=== PATIENT | female | born 1990 | race Caucasian/White ===

== ENCOUNTER 2016-12-10 19:58 | Outpatient (CLI) | payer OTHER ==
[~2016-12-10] VITALS: Ht 165.1 cm; Wt 97.3 kg
[2016-12-10 20:25] VITALS: BP 114/74; PULSE 98; TEMP 98
[2016-12-10 20:35] VITALS: BP 119/70; PULSE 71
[2016-12-10] MEDS ORDERED: PRENATAL1 TA7 PO (20:37)
[2016-12-10 21:05] VITALS: BP 112/72; PULSE 71
== END 2016-12-10 21:37 | disposition home or self-care (01) ==
LOC: LDRO 19:58
DX: Z03.71 Encounter for suspected problem with amniotic cavity and membrane ruled out (principal)

== ENCOUNTER 2016-12-11 02:41 | Inpatient (IN) | payer OTHER ==
[~2016-12-11] VITALS: Ht 165.1 cm; Wt 99.1 kg
[2016-12-11] VITALS (9 sets, daily range): BP systolic 106–132; BP diastolic 67–84; PULSE 73–100; TEMP 97.4–98.8
[~2016-12-11 02:41] MED LIST: PRENATAL1 TA7 PO
[2016-12-11 03:58] LABS: BASO % 0.2 % (0.0-2.0); EOS % 0.1 % (0-4.0); GRAN # 14.7 (1.4-6.5); HEMATOCRIT 38.3 % (37.0-47.0); HEMOGLOBIN 13.2 g/dl (12.5-16.0); LYMPH % 6.3 % (20.0-51.0); MEAN CELL VOLUME 93 fl (80.0-100.0); MEAN CORPUSCULAR HEMOGLOBIN 32 pg (27.0-31.0); MEAN CORPUSCULAR HGB CONC 35 g/dl (33.0-37.0); MEAN PLATELET VOLUME 10.7 fl (7.4-10.4); MONO # 0.6 (0.1-0.6); MONO % 3.7 % (1.7-9.3); PLATELET COUNT 148 K/mm3 (130-400); RED BLOOD COUNT 4.12 M/mm3 (4.10-5.30); WHITE BLOOD COUNT 16.5 K/mm3 (4.8-10.8)
[2016-12-12 08:00] VITALS: BP 111/79; PULSE 82; TEMP 97.2
[2016-12-12] MEDS ORDERED: MOTRIN 800800 MG/TAB PO (08:30)
[2016-12-12] MEDS ORDERED: PERCOCET 325 MG1 TA2 PO (08:31)
== END 2016-12-12 12:00 | disposition home or self-care (01) | DRG 775 ==
LOC: LDR 02:41 → OB 05:05
PROVIDERS: Obstetrics & Gynecology
PROC: 10E0XZZ Delivery of Products of Conception, External Approach (ICD-10-PCS; principal; 2016-12-11)
PROC: 0HQ9XZZ Repair Perineum Skin, External Approach (ICD-10-PCS; 2016-12-11)
DX: O62.3 Precipitate labor (principal); O70.0 First degree perineal laceration during delivery; Z37.0 Single live birth; Z3A.39 39 weeks gestation of pregnancy
CPT/HCPCS: J2590

== ENCOUNTER → 2018-02-24 | Outpatient (CLI) | payer OTHER ==
[~2018-02-24] MED LIST changes: +MOTRIN 800800 MG/TAB PO; +PERCOCET 325 MG1 TA2 PO
== END ==
LOC: COL.RAD 07:03
DX: R10.11 Right upper quadrant pain (principal)